=== PATIENT | female | born 1990 | race Caucasian/White ===

== ENCOUNTER 2017-08-30 14:29 | Emergency (ER) | payer SELFPAY ==
[~2017-08-30] VITALS: Ht 157.5 cm; Wt 65.0 kg
[~2017-08-30 14:29] MED LIST: BACT800T5 PO; DOXY100T PO
[2017-08-30 14:45] VITALS: BP 126/83; PULSE 105; RESP 16; TEMP 97.7; O2SAT 97
== END 2017-08-30 16:21 | disposition left against medical advice (07) ==
LOC: NETRI 14:29
DX: Z00.00 Encounter for general adult medical examination without abnormal findings (principal); Z53.21 Procedure and treatment not carried out due to patient leaving prior to being seen by health care provider
CPT/HCPCS: 99281